=== PATIENT | female | born 1965 | race Caucasian/White ===

== ENCOUNTER 2024-10-14 21:04 | Emergency (ER) | payer OTHER ==
[~2024-10-14] VITALS: Ht 165.1 cm; Wt 72.6 kg
[~2024-10-14 21:04] MED LIST: ALBU90OI INH; AMOCLA875 PO; AMOX500 PO; BCP; CONEST.9 PO; Cyclobenzaprine5 MG PO; DULO30 PO; HYDACE5 PO; HYDCHL25 PO; IBUP600 PO; METO10 PO; OXYACE5T PO; OXYACE7.5T PO; PRED10 PO; PRED20 PO; Percocet 7.5-31 EACH PO; RXOXYACE PO; Sudogest30 MG PO; ZOLM5ODT MM; [UNRECOGNIZED DRUG - OTHER]
[2024-10-14 21:53] LABS: BASOPHILS ABSOLUTE AUTO 0.04 K/mm3 (0.00-0.23); BASOPHILS PERCENT AUTO 0 % (0-2); EOSINOPHILS ABSOLUTE AUTO 0.13 K/mm3 (0.00-0.68); EOSINOPHILS PERCENT AUTO 1 % (0-6); Hematocrit 42.3 % (33.0-51.0); Hemoglobin 13.6 g/dL (11.5-16.0); IMMATURE GRAN ABSOLUTE AUTO 0.02 K/mm3 (0.00-0.10); IMMATURE GRAN PERCENT AUTO 0 % (0-1); LYMPHOCYTES ABSOLUTE AUTO 3.91 K/mm3 (0.84-5.20); LYMPHOCYTES PERCENT AUTO 43 % (21-46); MONOCYTES ABSOLUTE AUTO 0.87 K/mm3 (0.16-1.47); MONOCYTES PERCENT AUTO 10 % (4-13); Mean Corpuscular HGB 29.2 pg (26.0-34.0); Mean Corpuscular HGB Conc 32.2 g/dL (31.5-36.5); Mean Corpuscular Volume 91 fL (80-100); Mean Platelet Volume 10.6 fL (9.1-12.4); NEUTROPHILS PERCENT AUTO 45 % (41-73); Platelet Count 231 K/mm3 (150-400); RDW Coefficient Variation 13.2 % (11.7-14.2); RDW Standard Deviation 44.3 fL (35.1-46.3); Red Blood Cell Count 4.65 M/mm3 (3.80-5.20); White Blood Cell Count 9.07 K/mm3 (4.00-11.30)
[2024-10-14 22:06] LABS: Bun/Creatinine Ratio 24.4 (12.0-20.0); Calcium, Blood 9.4 mg/dL (8.5-10.1); Creatinine, Blood 0.86 mg/dL (0.40-1.00); Potassium, Blood 3.6 mmol/L (3.5-5.5)
[2024-10-15 00:34] VITALS: BP 138/90
== END 2024-10-15 00:34 | disposition home or self-care (01) ==
LOC: ER 21:04
PROVIDERS: Student in an Organized Health Care Education/Training Program
DX: R06.02 Shortness of breath (principal); Z87.891 Personal history of nicotine dependence; Z79.52 Long term (current) use of systemic steroids; Z79.899 Other long term (current) drug therapy
CPT/HCPCS: 71046; 71260; 80048; 84484; 85025; 85379; 93005; 93010; 99285-25; Q9967

== ENCOUNTER → 2025-06-09 | Outpatient (CLI) | payer OTHER | LOC: LAB SHORT 10:39 → LAB 10:39 | DX: N30.01 Acute cystitis with hematuria (principal) | CPT/HCPCS: 87077; 87086; 87186 ==

== ENCOUNTER → 2025-07-15 | Outpatient (CLI) | payer OTHER ==
[2025-07-15 13:56] LABS: Campylobacter Sp Detected (NOT DETECT); Salmonella Sp Not Detected (NOT DETECT); Vibrio Sp Not Detected (NOT DETECT)
[2025-07-15 13:57] LABS: E. Coli O157 Not Detected (NOT DETECT); Enteroaggregative E. coli-EAEC Not Detected (NOT DETECT); Enteropathogenic E. coli-EPEC Not Detected (NOT DETECT); Enterotoxigenic E. coli-ETEC Not Detected (NOT DETECT); Shiga Toxin-prod E. coli-STEC Not Detected (NOT DETECT); Shigella/Enteroin E. coli-EIEC Not Detected (NOT DETECT)
[2025-07-21 17:29] LABS: OVA AND PARASITE,FECAL INTERP Negative (Negative)
== END | disposition home or self-care (01) ==
LOC: LAB SHORT 10:44 → LAB 10:44
PROVIDERS: Nurse Practitioner Family
DX: R19.7 Diarrhea, unspecified (principal)
CPT/HCPCS: 87177; 87209; 87507